=== PATIENT | female | born 1975 | race Caucasian/White ===

== ENCOUNTER → 2018-06-12 | Outpatient (CLI) | payer MEDICARE, OTHER ==
[~2018-06-12] MED LIST: ASPIR 8181 MG PO; ATORVASTATIN CA20 MG PO; CALCIUM ACETAT667 MG PO; CINNAMON500 MG PO; CLOPIDOGREL75 MG PO; DIALYVITE 8000.8 M1 PO; FISH OIL300 MG PO; GABAPENTIN300 MG PO; METOPROLOL SUCC25 MG PO; MILK THISTLE175 M2 PO; ULTRAM50 MG PO
--- NOTE | 2018-06-12 14:51 | Diagnostic Imaging Report ---
Exam: Abdominal film Clinical History: Right-sided abdominal pain since yesterday Comparison: CT abdomen and pelvis 04/03/2017/ DISCUSSION: Frontal view of the abdomen shows a nonobstructive bowel gas pattern with mild to moderate amount of retained stool.There are no dilated, air-filled loops of bowel. No radiopaque densities project over the renal shadows, expected course of the ureters or bladder. Vascular calcifications. No acute bony abnormalities. IMPRESSION: 1. Nonobstructive bowel gas pattern. 2. No radiopaque densities project over the genitourinary system. The staff physician below has personally reviewed this exam on the date of dictation. Signed by: Dr. Paul Sanders M.D. on 06/12/2018 2:48 PM
== END ==
LOC: RAD 12:49
PROVIDERS: ATTEND Internal Medicine
DX: R10.9 Unspecified abdominal pain (principal); K59.01 Slow transit constipation
CPT/HCPCS: 74018

== ENCOUNTER → 2018-07-08 | Outpatient (CLI) | payer MEDICARE, OTHER ==
--- NOTE | 2018-07-09 13:39 | Diagnostic Imaging Report ---
#[id number] - MGSCRBIL #BILATERAL DIGITAL SCREENING MAMMOGRAM WITH CAD: 07/08/2018 CLINICAL: Routine screening. Comparison is made to exams dated: 01/16/2017 mammogram and 05/11/2014 mammogram - [facility]. Current study contains 5 films. There are scattered fibroglandular elements in both breasts. Current study was also evaluated with a Computer Aided Detection (CAD) system. There are benign vascular calcifications and calcifications in both breasts. Engorged prominent vasculature in both breasts as well and new diffuse vascular calcification is now evident. Findings can be seen in renal failure patients. There are prominent lymph nodes in both axillary regions. No significant masses, calcifications, or other findings are seen in either breast. IMPRESSION: BENIGN There is no mammographic evidence of malignancy. A 1 year screening mammogram is recommended. The patient will be notified by letter of the results. Jarrett Chavez Jr., D.O. cw/:07/09/2018 08:07:11 Rewinder Operator: Radha MCKINLEY)(M), [facility] letter sent: Compared to Prior B9 Mammogram BI-RADS: 2 Benign
== END ==
LOC: MAMMO 10:36
PROVIDERS: ATTEND Internal Medicine
DX: Z12.31 Encounter for screening mammogram for malignant neoplasm of breast (principal)
CPT/HCPCS: 77067

== ENCOUNTER → 2019-07-30 | Outpatient (CLI) | payer MEDICARE | LOC: MAMMO 10:35 | PROVIDERS: ATTEND Internal Medicine | DX: Z12.31 Encounter for screening mammogram for malignant neoplasm of breast (principal) | CPT/HCPCS: 77067 ==

== ENCOUNTER → 2020-04-05 | Outpatient (CLI) | payer MEDICARE ==
--- NOTE | 2020-04-05 14:27 | Diagnostic Imaging Report ---
EXAM: CT Abdomen and Pelvis WITHOUT intravenous contrast INDICATION: Abdominal pain COMPARISON: KUB of 06/12/2018 TECHNIQUE: Abdomen and pelvis were scanned utilizing a multidetector helical scanner from the lung base to the pubic symphysis without administration of IV contrast. Coronal and sagittal reformations were obtained. IV CONTRAST: None ORAL CONTRAST: Water COMPLICATIONS: None RADIATION DOSE: Total DLP: 803 mGy*cm Dose modulation, iterative reconstruction, and/or weight based adjustment of the mA/kV was utilized to reduce the radiation dose to as low as reasonably achievable. FINDINGS: LOWER THORAX: Triple vessel atherosclerotic coronary artery calcifications. HEPATOBILIARY: Radiopaque gallstones in the dependent portion of the gallbladder. No focal liver lesion. SPLEEN: No splenomegaly. PANCREAS: No focal masses or ductal dilatation. ADRENALS: No adrenal nodules. KIDNEYS/URETERS: Atrophic bilateral jackson kidneys. No renal calculi , hydronephrosis or solid mass lesion. PELVIC ORGANS/BLADDER: Decompressed bladder. PERITONEUM / RETROPERITONEUM: No free air or fluid. LYMPH NODES: No lymphadenopathy. VESSELS: Diffuse atherosclerotic calcifications of the nonaneurysmal abdominal aorta and major branches. GI TRACT: No abnormal bowel thickening. No bowel obstruction. Mildly increased stool burden throughout the colon. Status post appendectomy. BONES AND SOFT TISSUES: No acute osseous injury. No suspicious lytic or blastic lesions. IMPRESSION: Cholelithiasis without sonographic evidence of cholecystitis. Atrophic bilateral jackson kidneys. No renal calculi or hydronephrosis. Signed by: Tremayne Kiser MD on 04/05/2020 2:23 PM
== END ==
LOC: CT 10:53
PROVIDERS: ATTEND Internal Medicine
DX: K52.9 Noninfective gastroenteritis and colitis, unspecified (principal)
CPT/HCPCS: 74176

== ENCOUNTER → 2020-04-15 | Outpatient (CLI) | payer MEDICARE, OTHER ==
--- NOTE | 2020-04-15 14:34 | Diagnostic Imaging Report ---
EXAMINATION: SP LUMBAR, COMPLETE MIN 4VW, SACRUM X-RAY INDICATION: Spondylosis COMPARISON: None FINDINGS: AP, lateral and oblique images of the lumbar spine and AP and lateral images of the sacrum were obtained. No acute fracture. Vertebral body heights are maintained. Alignment is anatomic without evidence of spondylosis. Oblique images demonstrate no evidence of spondylolysis. Minimal multilevel degenerative changes with small osteophyte formation. Nonobstructive bowel gas pattern. Increased stool burden in the rectum and sigmoid colon. IMPRESSION: No acute osseous injury. Anatomic alignment of the lumbar spine. Increased stool burden in the rectum and sigmoid colon compatible with constipation. Signed by: Tremayne Kiser MD on 04/15/2020 2:31 PM
--- NOTE | 2020-04-15 14:36 | Diagnostic Imaging Report ---
MRI BRAIN WO HISTORY: Fall, left-sided weakness COMPARISON: None. TECHNIQUE: Sagittal T2, axial T2, axial T1, axial T2/FLAIR, axial gradient echo (or susceptibility weighted), coronal T2/FLAIR, and axial diffusion weighted MR images of the brain were obtained without contrast. Motion artifacts obscure some details. DISCUSSION: Scalp/bone marrow: Unremarkable. Brain sulci: Appropriate for patient's age. Ventricles: Normal in size and configuration. Small cavum septum pellucidum is present, a normal variant. . Extra-axial spaces: No masses or fluid collections. Parenchyma: No definite abnormal signal intensities. No mass, hemorrhage, or acute vascular insults. Vessels: Normal flow voids in major arteries and veins. Sellar/Suprasellar region: No abnormalities. Craniocervical junction: No abnormalities. Incidental findings: Bilateral ocular lens replacement. Mild left maxillary sinus mucosal thickening and trace right mastoid effusion. IMPRESSION: No intracranial abnormalities. Signed by: Dr. Osei Her M.D. on 04/15/2020 2:33 PM
== END ==
LOC: MRI 12:37
PROVIDERS: ATTEND Internal Medicine
DX: S00.83XA Contusion of other part of head, initial encounter (principal); M47.816 Spondylosis without myelopathy or radiculopathy, lumbar region
CPT/HCPCS: 70551; 72110; 72220

== ENCOUNTER → 2020-05-31 | Outpatient (CLI) | payer MEDICARE, OTHER ==
--- NOTE | 2020-05-31 10:29 | Diagnostic Imaging Report ---
EXAMINATION: HIP LEFT 2-3 VW (+/- PELVIS) INDICATION: Left hip pain COMPARISON: None FINDINGS: AP view of the pelvis and AP and frog-leg views of the left hip demonstrate no acute fracture or dislocation. Alignment is anatomic. Mild degenerative changes of both hip joints. Atherosclerotic arterial calcifications. Phleboliths in the pelvis. IMPRESSION: No acute osseous injury. Mild degenerative changes of both hip joints. Signed by: Tremayne Kiser MD on 05/31/2020 10:25 AM
--- NOTE | 2020-05-31 23:15 | Diagnostic Imaging Report ---
Examination: MRI SPINE LUMBAR WO CONTRAST History: Back pain with left hip and left leg pain. Comparison studies: 04/15/2020 lumbar spine x-ray Technique: Sagittal, coronal and axial T2 , sagittal T1 and STIR; axial spin density oblique. Findings: Number of lumbar vertebral bodies: Five. Alignment: Normal lordosis. No scoliosis. Soft tissues: Bilaterally atrophic kidneys with several T2 hyperintense rounded lesion, the largest of which measures 1.7cm. Posterior paraspinal soft tissues and muscles: No abnormality. Lower thoracic cord: Normal in signal and morphology. The tip of the conus is at L1. Cauda equina: No masses. No arachnoiditis. Vertebrae: No fractures, infection or neoplasm. Type I Modic change of the right aspect of the L4-L5 adjacent to a Schmorl's node. Degenerative changes: L1-L2 through L3-L4: No abnormalities. L4-L5: Central disc protrusion and diffuse disc bulge, bilateral facet arthropathy and ligamentum flavum thickening result in moderate canal stenosis, moderate bilateral lateral recess narrowing with compression of the left greater than right descending L5 nerve roots and mild bilateral foraminal narrowing. . L5-S1: Central disc protrusion and diffuse disc bulge, bilateral facet arthropathy and ligamentum flavum thickening result in mild right and moderate left lateral recess narrowing with contact of the right descending S1 and compression of the left descending S1 nerve root and mild bilateral foraminal narrowing. No canal stenosis. IMPRESSION: Degenerative change at L4-L5 and L5-S1 with moderate canal stenosis and moderate bilateral lateral recess narrowing with compression of the left greater than right descending L5 nerve roots at L4-L5. Moderate left lateral recess narrowing with compression of the left descending S1 nerve root at L5-S1. Signed by: Dr. Sofía Singh M.D. on 05/31/2020 11:12 PM
== END ==
LOC: MRI 09:41
PROVIDERS: ATTEND Internal Medicine
DX: M54.32 Sciatica, left side (principal); S73.102A Unspecified sprain of left hip, initial encounter
CPT/HCPCS: 72148

== ENCOUNTER 2021-10-28 02:57 | Emergency (ER) | payer MEDICARE ==
[~2021-10-28] VITALS: Ht 160 cm; Wt 108.9 kg
[2021-10-28 03:06] LABS: BASOPHILS % 0.3 % (0.0-1.0); EOSINOPHILS # (AUTO) 0.3 (0.0-0.4); EOSINOPHILS % 2.3 % (0.0-6.0); HEMATOCRIT 44.3 % (34.2-44.1); HEMOGLOBIN 14.2 g/dL (12.0-16.0); LYMPHOCYTES # (AUTO) 2.4 (1.0-3.2); LYMPHOCYTES % 20.2 % (18.0-39.1); MEAN CORPUSCULAR HEMOGLOBIN 32.6 pg (28-32); MEAN CORPUSCULAR HGB CONC 32.1 g/dL (31-35); MEAN CORPUSCULAR VOLUME 101.8 fL (81-99); MONOCYTES # (AUTO) 0.7 (0.2-0.8); MONOCYTES % 5.6 % (4.4-11.3); NEUTROPHILS # (AUTO) 8.5 (2.1-6.9); NEUTROPHILS % 71.3 % (38.7-80.0); PLATELET COUNT 201 x10e3/uL (140-360); RED BLOOD COUNT 4.35 x10e6/uL (3.6-5.1); RED CELL DISTRIBUTION WIDTH 12.8 % (11.7-14.4)
[2021-10-28 03:22] LABS: ANION GAP 19.6 mmol/L (8-16); CALCIUM 10.5 mg/dL (8.4-10.2); CREATININE, SERUM 10.85 mg/dL (0.57-1.11); POTASSIUM 4.6 mmol/L (3.5-5.1)
[2021-10-28 04:15] VITALS: BP 151/67
== END 2021-10-28 04:29 | disposition home or self-care (01) ==
LOC: ER 03:01
DX: N18.6 End stage renal disease (principal); U07.1 COVID-19
CPT/HCPCS: 36415; 71045; 80048; 83880; 85025; 99284

== ENCOUNTER 2021-10-29 10:05 | Emergency (ER) | payer MEDICARE ==
[~2021-10-29] VITALS: Ht 160 cm; Wt 108.9 kg
== END 2021-10-29 10:50 | disposition home or self-care (01) ==
LOC: ER 10:23
DX: R07.9 Chest pain, unspecified (principal); I12.0 Hypertensive chronic kidney disease with stage 5 chronic kidney disease or end stage renal disease; E11.22 Type 2 diabetes mellitus with diabetic chronic kidney disease; E11.65 Type 2 diabetes mellitus with hyperglycemia; N18.6 End stage renal disease; Z99.2 Dependence on renal dialysis; E78.5 Hyperlipidemia, unspecified; I25.10 Atherosclerotic heart disease of native coronary artery without angina pectoris; I25.2 Old myocardial infarction
CPT/HCPCS: 99282

== ENCOUNTER → 2022-01-25 | Outpatient (CLI) | payer MEDICARE | LOC: RAD 11:08 | PROVIDERS: ATTEND Internal Medicine | DX: M54.32 Sciatica, left side (principal) | CPT/HCPCS: 72110 ==

== ENCOUNTER → 2022-11-13 | Day surgery (SDC) | payer MEDICARE ==
[~2022-11-13] MED LIST changes: +BUPIVACAINE HCL 0.5% INJ 30 ML VIAL INJ ONE; +CYCLOBENZAPRINE10 MG PO; +FENTANYL CITRATE/PF 100MCG/2 ML INJ ONE; +HUMALOG SQ; +LEVEMIR100 UNIT/1 SQ; +LORTAB 10 MG-3473 ML PO; +LYRICA25 MG PO; +MIDAZOLAM HCL 2 MG/2 ML VIAL ONE; +MIDODRINE HCL10 MG PO; +RANEXA1000 MG PO; +SODIUM CHLORIDE 0.9% 250ML 250 ML ONE; +SODIUM CHLORIDE 0.9% 500ML 500 ML ONE; +Vancomycin IV 1 GM VIAL ONE
[2022-11-13 11:50] LABS: BASOPHILS # (AUTO) 0.1 (0.0-0.1); BASOPHILS % 0.6 % (0.0-1.0); EOSINOPHILS # (AUTO) 0.1 (0.0-0.4); HEMATOCRIT 47.2 % (34.2-44.1); HEMOGLOBIN 14.9 g/dL (12.0-16.0); LYMPHOCYTES # (AUTO) 2.2 (1.0-3.2); LYMPHOCYTES % 24.7 % (18.0-39.1); MEAN CORPUSCULAR HEMOGLOBIN 32.9 pg (28-32); MEAN CORPUSCULAR HGB CONC 31.6 g/dL (31-35); MEAN CORPUSCULAR VOLUME 104.2 fL (81-99); MONOCYTES # (AUTO) 0.9 (0.2-0.8); MONOCYTES % 9.9 % (4.4-11.3); NEUTROPHILS # (AUTO) 5.7 (2.1-6.9); NEUTROPHILS % 63.5 % (38.7-80.0); PLATELET COUNT 210 x10e3/uL (140-360); RED BLOOD COUNT 4.53 x10e6/uL (3.6-5.1); RED CELL DISTRIBUTION WIDTH 12.9 % (11.7-14.4)
[2022-11-13 12:02] LABS: INR 0.95; PROTHROMBIN TIME 12.9 seconds (11.9-14.5)
[2022-11-13 12:03] LABS: PARTIAL THROMBOPLASTIN TIME 30.2 seconds (23.8-35.5)
[2022-11-13 12:40] LABS: ANION GAP 24.4 mmol/L (8-16); CALCIUM 9.9 mg/dL (8.4-10.2); CREATININE, SERUM 9.7 mg/dL (0.57-1.11); POTASSIUM 5.4 mmol/L (3.5-5.1)
[2022-11-13 14:30] VITALS: BP 136/62
== END | disposition home or self-care (01) ==
LOC: OR 10:49
PROVIDERS: ATTEND Podiatrist Foot & Ankle Surgery
DX: E11.22 Type 2 diabetes mellitus with diabetic chronic kidney disease (principal); E11.621 Type 2 diabetes mellitus with foot ulcer; L97.516 Non-pressure chronic ulcer of other part of right foot with bone involvement without evidence of necrosis; E11.40 Type 2 diabetes mellitus with diabetic neuropathy, unspecified; E11.51 Type 2 diabetes mellitus with diabetic peripheral angiopathy without gangrene; N18.6 End stage renal disease; J45.909 Unspecified asthma, uncomplicated; I25.2 Old myocardial infarction; Z88.8 Allergy status to other drugs, medicaments and biological substances; Z91.041 Radiographic dye allergy status; Z79.4 Long term (current) use of insulin; Z79.02 Long term (current) use of antithrombotics/antiplatelets; Z79.82 Long term (current) use of aspirin; Z79.899 Other long term (current) drug therapy; Z99.2 Dependence on renal dialysis; Z95.5 Presence of coronary angioplasty implant and graft; Z86.73 Personal history of transient ischemic attack (TIA), and cerebral infarction without residual deficits
CPT/HCPCS: 28124; 36415; 80048; 82948; 85025; 85610; 85730; 87071; 87075; 87205; 88304; 88311; 93005; J2250; J3010; J3370; J7040; J7050; 76000

== ENCOUNTER 2022-12-09 07:18 | Inpatient (IN) | payer MEDICARE, MEDICAID ==
[~2022-12-09] VITALS: Ht 160 cm; Wt 108.9 kg
[~2022-12-09 07:18] MED LIST changes: -BUPIVACAINE HCL 0.5% INJ 30 ML VIAL INJ ONE; -FENTANYL CITRATE/PF 100MCG/2 ML INJ ONE; -MIDAZOLAM HCL 2 MG/2 ML VIAL ONE; -SODIUM CHLORIDE 0.9% 250ML 250 ML ONE; -SODIUM CHLORIDE 0.9% 500ML 500 ML ONE; -Vancomycin IV 1 GM VIAL ONE
[2022-12-09] MEDS ORDERED: Morphine 4mg INJECTION 4 MG/ML INJ IV STA (07:32)
[2022-12-09] MEDS ORDERED: ONDANSETRON HCL INJ 2MG/ML 2ML 2 MG/ML VIAL IV STA (07:32)
[2022-12-09 08:06] LABS: BASOPHILS # (AUTO) 0.1 (0.0-0.1); EOSINOPHILS # (AUTO) 0.1 (0.0-0.4); HEMATOCRIT 43.9 % (34.2-44.1); HEMOGLOBIN 15.1 g/dL (12.0-16.0); LYMPHOCYTES # (AUTO) 2.3 (1.0-3.2); LYMPHOCYTES % 18.1 % (18.0-39.1); MEAN CORPUSCULAR HGB CONC 34.4 g/dL (31-35); MEAN CORPUSCULAR VOLUME 101.6 fL (81-99); MONOCYTES # (AUTO) 0.9 (0.2-0.8); MONOCYTES % 6.9 % (4.4-11.3); NEUTROPHILS # (AUTO) 9.1 (2.1-6.9); NEUTROPHILS % 72.4 % (38.7-80.0); PLATELET COUNT 188 x10e3/uL (140-360); RED BLOOD COUNT 4.32 x10e6/uL (3.6-5.1)
[2022-12-09 08:13] LABS: INR 0.84; PROTHROMBIN TIME 11.7 seconds (11.9-14.5)
[2022-12-09 08:15] LABS: PARTIAL THROMBOPLASTIN TIME 20.3 seconds (23.8-35.5)
[2022-12-09 08:43] LABS: ALANINE AMINOTRANSFERASE 37 IU/L (0-55); ALBUMIN/GLOBULIN RATIO 0.8 (0.8-2.0); ALKALINE PHOSPHATASE 142 IU/L (40-150); ANION GAP 26.2 mmol/L (8-16); BLOOD UREA NITROGEN 78 mg/dL (7-26); BUN/CREATININE RATIO 8 (6-25); CALCIUM 10.8 mg/dL (8.4-10.2); CARBON DIOXIDE 26 mmol/L (22-29); CHLORIDE 90 mmol/L (98-107); CREATINE KINASE 177 IU/L (29-168); CREATININE, SERUM 9.92 mg/dL (0.57-1.11); GLUCOSE 284 mg/dL (74-118); MAGNESIUM 2.9 MG/DL (1.3-2.1); SODIUM 136 mmol/L (136-145)
[2022-12-09 08:44] LABS: POTASSIUM 6.2 mmol/L (3.5-5.1)
[2022-12-09] MEDS ORDERED: DEXTROSE 50% SYRINGE 50 ML IV STA (08:47)
[2022-12-09] MEDS ORDERED: SODIUM BICARBONATE 8.4% INJ 50 ML SYR IV STA (08:47)
[2022-12-09] MEDS ORDERED: INSULIN REGULAR, HUMAN 100 UNIT/1 ML IV ONE (09:00)
[2022-12-09] MEDS ORDERED: CALCIUM GLUC 1 G/50 ML NACL 50 ML IV ONE (09:32)
[2022-12-09] MEDS ORDERED: MECLIZINE HCL 12.5 MG TAB PO ONE (09:45)
[2022-12-09] MEDS ORDERED: ONDANSETRON HCL INJ 2MG/ML 2ML 2 MG/ML VIAL IV PRN (10:15)
[2022-12-09] MEDS ORDERED: Morphine 2mg Syringe 2 MG/ML SYR IV PRN (10:15)
[2022-12-09] MEDS ORDERED: DEXTROSE 50% SYRINGE 50 ML IV PRN (10:15)
[2022-12-09] MEDS ORDERED: INSULIN LISPRO 100 UNIT/1 ML 3ML VIAL SQ SCH ×2 (11:30→21:00)
[2022-12-09] MEDS ORDERED: SODIUM CHLORIDE 0.9% 1000ML 2,000 ML IV PRN (12:00)
[2022-12-09] MEDS: MIDODRINE HCL 5 MG TABLET PO SCH (13:04)
[2022-12-09] MEDS ORDERED: MIDODRINE HCL 5 MG TABLET ONE (13:10)
[2022-12-09] MEDS: FAMOTIDINE 20 MG/2 ML VIAL IV SCH ×2 (13:11→21:39)
[2022-12-09 14:54] VITALS: BP 138/48
[2022-12-09 15:06] VITALS: BP 138/48
[2022-12-09 16:03] LABS: CREATINE KINASE MB 3.9 ng/mL (0-5.0)
[2022-12-09 20:00] VITALS: BP 120/42
[2022-12-09 20:55] VITALS: BP 138/48
[2022-12-10 01:22] VITALS: BP 125/44
[2022-12-10 05:54] VITALS: BP 101/49
[2022-12-10 06:14] LABS: BASOPHILS # (AUTO) 0.1 (0.0-0.1); BASOPHILS % 0.7 % (0.0-1.0); EOSINOPHILS # (AUTO) 0.3 (0.0-0.4); EOSINOPHILS % 3.5 % (0.0-6.0); HEMATOCRIT 43.7 % (34.2-44.1); HEMOGLOBIN 13.8 g/dL (12.0-16.0); LYMPHOCYTES # (AUTO) 3.2 (1.0-3.2); LYMPHOCYTES % 33.9 % (18.0-39.1); MEAN CORPUSCULAR HEMOGLOBIN 32.7 pg (28-32); MEAN CORPUSCULAR HGB CONC 31.6 g/dL (31-35); MEAN CORPUSCULAR VOLUME 103.6 fL (81-99); MONOCYTES # (AUTO) 0.8 (0.2-0.8); MONOCYTES % 8.7 % (4.4-11.3); NEUTROPHILS % 52.7 % (38.7-80.0); PLATELET COUNT 210 x10e3/uL (140-360); RED BLOOD COUNT 4.22 x10e6/uL (3.6-5.1); RED CELL DISTRIBUTION WIDTH 12.9 % (11.7-14.4)
[2022-12-10 06:31] LABS: ALBUMIN 3.4 g/dL (3.5-5.0); ALBUMIN/GLOBULIN RATIO 0.8 (0.8-2.0); ANION GAP 18.9 mmol/L (8-16); CHOL/HDL RATIO 3.4 (3.0-3.6); CREATININE, SERUM 8.73 mg/dL (0.57-1.11); POTASSIUM 4.9 mmol/L (3.5-5.1)
[2022-12-10 07:38] LABS: CREATINE KINASE MB 3.5 ng/mL (0-5.0)
[2022-12-10] MEDS: MIDODRINE HCL 5 MG TABLET PO SCH ×3 (08:06→16:58)
[2022-12-10 08:30] VITALS: BP 128/51
[2022-12-10] MEDS ORDERED: DEXTROSE 50% SYRINGE 50 ML IV PRN (08:45)
[2022-12-10] MEDS ORDERED: HYDROCODONE/APAP 5MG-325MG TAB PO PRN ×2 (08:45→17:15)
[2022-12-10] MEDS ORDERED: CYCLOBENZAPRINE HCL 10 MG TAB PO SCH (08:45)
[2022-12-10] MEDS ORDERED: LACTULOSE SYRUP 20 GM/30 ML UDC PO PRN (08:45)
[2022-12-10] MEDS ORDERED: ASPIRIN 81 MG CHEW TAB PO SCH (09:00)
[2022-12-10] MEDS ORDERED: PREGABALIN 25 MG CAP PO SCH ×2 (09:00→18:00)
[2022-12-10] MEDS ORDERED: CLOPIDOGREL BISULFATE 75 MG TAB PO SCH (09:00)
[2022-12-10] MEDS ORDERED: METOPROLOL SUCCINATE 25 MG TAB XL PO SCH (09:00)
[2022-12-10 09:01] VITALS: BP 128/51
[2022-12-10] MEDS ORDERED: SENNA-S TABLET PO SCH (09:30)
[2022-12-10] MEDS ORDERED: RANOLAZINE 500 MG TABSR PO SCH (09:30)
[2022-12-10] MEDS: FAMOTIDINE 20 MG/2 ML VIAL IV SCH (10:15)
[2022-12-10] MEDS: INSULIN LISPRO 100 UNIT/1 ML 3ML VIAL SQ SCH ×4 (11:30→16:30)
[2022-12-10] MEDS ORDERED: HYDROCODON-ACE1 EA11 PO (12:27)
[2022-12-10 13:44] VITALS: BP 158/60
[2022-12-10] MEDS ORDERED: ONDANSETRON HCL 4 MG ORAL DISINTEGRATING TAB PO PRN (14:15)
[2022-12-10 17:04] VITALS: BP 126/45
[2022-12-10] MEDS ORDERED: ATORVASTATIN 40 MG TAB PO SCH (21:00)
[2022-12-10] MEDS ORDERED: INSULIN GLARGINE 100 UNITS/ML VIAL SQ SCH (21:00)
== END 2022-12-10 17:28 | disposition home or self-care (01) | DRG 640 ==
LOC: ER 07:34 → ERHOLD 10:05 → MED/SURG3 13:58
PROVIDERS: ADMIT Internal Medicine; ATTEND Internal Medicine
PROC: 5A1D70Z Performance of Urinary Filtration, Intermittent, Less than 6 Hours Per Day (ICD-10-PCS; principal; 2022-12-09)
DX: E87.5 Hyperkalemia (principal); N18.6 End stage renal disease; I12.0 Hypertensive chronic kidney disease with stage 5 chronic kidney disease or end stage renal disease; Z68.41 Body mass index [BMI] 40.0-44.9, adult; I25.110 Atherosclerotic heart disease of native coronary artery with unstable angina pectoris; E11.22 Type 2 diabetes mellitus with diabetic chronic kidney disease; Z99.2 Dependence on renal dialysis; Z79.4 Long term (current) use of insulin; I25.2 Old myocardial infarction; Z86.16 Personal history of COVID-19; J45.909 Unspecified asthma, uncomplicated; I25.10 Atherosclerotic heart disease of native coronary artery without angina pectoris; Z95.1 Presence of aortocoronary bypass graft; Z95.5 Presence of coronary angioplasty implant and graft; E66.01 Morbid (severe) obesity due to excess calories; I95.9 Hypotension, unspecified; E11.40 Type 2 diabetes mellitus with diabetic neuropathy, unspecified; Z20.822 Contact with and (suspected) exposure to COVID-19
CPT/HCPCS: 36415; 70450; 71045; 80053; 80061; 82550; 82553; 82948; 83735; 84484; 84702; 85025; 85610; 85730; 86706; 87340; 93005; 94799; 99252; 99284; J0610; J1817; J2270; J2405; J7030

== ENCOUNTER 2023-01-07 06:40 | Emergency (ER) | payer MEDICARE ==
[~2023-01-07] VITALS: Ht 160 cm; Wt 108.9 kg
[~2023-01-07 06:40] MED LIST changes: +HYDROCODON-ACE1 EA11 PO
== END 2023-01-07 10:42 | disposition home or self-care (01) ==
LOC: ER 06:45
DX: S00.83XA Contusion of other part of head, initial encounter (principal); M25.561 Pain in right knee; M25.571 Pain in right ankle and joints of right foot; M54.50 Low back pain, unspecified; W01.0XXA Fall on same level from slipping, tripping and stumbling without subsequent striking against object, initial encounter; Y93.01 Activity, walking, marching and hiking; Y92.89 Other specified places as the place of occurrence of the external cause; I12.0 Hypertensive chronic kidney disease with stage 5 chronic kidney disease or end stage renal disease; E11.22 Type 2 diabetes mellitus with diabetic chronic kidney disease; N18.6 End stage renal disease; Z99.2 Dependence on renal dialysis; I50.9 Heart failure, unspecified; J45.909 Unspecified asthma, uncomplicated; I25.2 Old myocardial infarction; Z95.1 Presence of aortocoronary bypass graft
CPT/HCPCS: 70450; 72110; 99283